=== PATIENT | female | born 1955 | race American Indian/Alaskan Native ===

== ENCOUNTER 2021-07-31 23:09 | Inpatient (IN) | payer BC, MEDICARE ==
[2021-07-31] MEDS ORDERED: SODIUM CHLORIDE 0.9% 1000 ML 1,000 ML IV ONE (23:44)
--- NOTE | 2021-07-31 23:52 | Emergency Department Report ---
HPI - General Chief Complaint: High BP Time Seen by Provider: 07/31/21 23:38 - HPI HPI: Room 22 The patient is a 66-year-old female present with a chief complaint of altered mental status. Patient's last known well time is currently unknown. Per EMS t he patient's son came home at approximately 2000 to find the patient altered. She is normally ambulatory and talks with the patient now just looks around and does not answer questions. Patient was found to be hypertensive and hyperglycemic with a glucose in the 500s by EMS. Patient does not respond when asked if anything is bothering her ED Past Medical Hx - Past Medical History Hx Hypertension: Yes Hx Diabetes: Yes - Surgical History Past Surgical History?: No - Family History Family history: no significant - Social History Smoking Status: Unknown if ever smoked ED Review of Systems ROS: Stated complaint: HIGH BP/ HIGH BLOOD SUGAR Other details as noted in HPI Comment: Unobtainable due to pts medical conditions Physical Exam - Physical Exam Vital Signs: Vital Signs 07/31/21 23:24 Temperature 99.4 F Pulse Rate 109 H Respiratory 18 Rate Blood Pressure 206/109 O2 Sat by Pulse 100 Oximetry Physical Exam: GENERAL: The patient is well-developed well-nourished female lying on stretcher not appearing to be in acute distress. Patient looks around and sometimes makes eye contact but does not respond verbally HEENT: Normocephalic. Atraumatic. Extraocular motions are intact. Patient has moist mucous membranes. NECK: Supple. Trachea midline CHEST/LUNGS: Clear to auscultation. There is no respiratory distress noted. HEART/CARDIOVASCULAR: Regular. There is tachycardia. There is no gallop rub or murmur. ABDOMEN: Abdomen is soft, nontender. Patient has normal bowel sounds. There is no abdominal distention. SKIN: There is no rash. There is no edema. There is no diaphoresis. NEURO: The patient is awake and looks around occasionally making eye contact but does not respond verbally. The patient is not cooperative with neurologic exam. MUSCULOSKELETAL: There is no evidence of acute injury. ED Course Vital Signs 07/31/21 23:24 Temperature 99.4 F Pulse Rate 109 H Respiratory 18 Rate Blood Pressure 206/109 O2 Sat by Pulse 100 Oximetry - Reevaluation(s) Reevaluation #1: 08/01/21 01:34 Patient replies "mmmmmmmMMmmmm" when asked if anything is bothering her but does not respond when asked her name. Patient makes eye contact ED Medical Decision Making - Lab Data Result diagrams: 08/01/21 00:26 08/01/21 00:26 Laboratory Tests 07/31/21 08/01/21 08/01/21 23:46 00:26 00:26 WBC 10.7 RBC 4.54 Hgb 11.6 Hct 34.8 MCV 77 L MCH 25 L MCHC 33 RDW 19.1 H Plt Count 499 H Lymph % (Auto) 12.[address] [place] % (Auto) 3.3 Eos % (Auto) 0.2 Baso % (Auto) 0.7 Lymph # (Auto) 1.3 [place] # (Auto) 0.4 Eos # (Auto) 0.0 Baso # (Auto) 0.1 Seg Neutrophils % 83.7 H Seg Neutrophils # 9.0 H VBG pH Sodium 137 Potassium 4.2 Chloride 97.4 L Carbon Dioxide 23 Anion Gap 21 BUN 19 H Creatinine 1.0 Estimated GFR > 60 BUN/Creatinine Ratio 19 Glucose 579 H* POC Glucose 508 H Calcium 9.2 Total Bilirubin 0.30 AST 9 ALT 7 Alkaline Phosphatase 135 H Total Creatine Kinase 30 CK-MB (CK-2) 1.1 CK-MB (CK-2) Rel Index 3.6 Troponin T < 0.010 Total Protein 7.8 Albumin 3.5 L Albumin/Globulin Ratio 0.8 08/01/21 00:26 WBC RBC Hgb Hct MCV MCH MCHC RDW Plt Count Lymph % (Auto) [place] % (Auto) Eos % (Auto) Baso % (Auto) Lymph # (Auto) [place] # (Auto) Eos # (Auto) Baso # (Auto) Seg Neutrophils % Seg Neutrophils # VBG pH 7.406 Sodium Potassium Chloride Carbon Dioxide Anion Gap BUN Creatinine Estimated GFR BUN/Creatinine Ratio Glucose POC Glucose Calcium Total Bilirubin AST ALT Alkaline Phosphatase Total Creatine Kinase CK-MB (CK-2) CK-MB (CK-2) Rel Index Troponin T Total Protein Albumin Albumin/Globulin Ratio - EKG Data -: EKG Interpreted by Ar EKG shows normal: sinus rhythm Rate: tachycardia (123 bpm) - EKG Data When compared to previous EKG there are: previous EKG unavailable Interpretation: other (No ischemic changes seen) - Radiology Data Radiology results: report reviewed (Chest x-ray, CT head), image reviewed (Chest x-ray, CT head) interpreted by me: Chest x-ray-no definite focal filtrates, no pneumothorax [address] [address] XRay Report Signed Patient: DWAIN AC MR#: [id number] [birth year] : 1955 Acct:[id number] Age/Sex: 66 / F ADM Date: 07/31/21 Loc: ED Attending Dr: Ordering Physician: NARA GEORGE MD Date of Service: 07/31/21 Procedure(s): XR chest 1V ap Accession Number(s): [id number] cc: NARA GEORGE MD Fluoro Time In Minutes: CHEST 1 VIEW INDICATION / CLINICAL INFORMATION: Tachycardia, altered mental status. COMPARISON: Chest x-ray 02/29/2016. FINDINGS: SUPPORT DEVICES: None. HEART / MEDIASTINUM: No significant abnormality. LUNGS / PLEURA: Lungs are clear for degree of inspiration and technique utilized. BONES: No acute osseous abnormality. ADDITIONAL FINDINGS: No significant additional findings. IMPRESSION: 1. No active cardiopulmonary disease. Signer Name: Keren Urbina II, MD Signed: 08/01/2021 12:57 AM Workstation Name: [id number] Transcribed By: OLGA Dictated By: KEREN URBINA II, MD Electronically Authen ticated By: KEREN URBINA II, MD Signed Date/Time: 08/01/2156 DD/ TD/TT: [address] [address] Cat Scan Report Signed Patient: DWAIN AC MR#: [id number] [birth year] : 1955 Acct:[id number] Age/Sex: 66 / F ADM Date: 07/31/21 Loc: ED Attending Dr: Ordering Physician: NARA GEORGE MD Date of Service: 07/31/21 Procedure(s): CT head/brain wo con Accession Number(s): [id number] cc: NARA GEORGE MD CT HEAD WITHOUT CONTRAST INDICATION / CLINICAL INFORMATION: Altered mental status. TECHNIQUE: CT head was performed without administration of intravenous contrast. All CT scans at this location are performed using CT dose reduction for ALARA by means of automated exposure contr ol. COMPARISON: None available. FINDINGS: CEREBRAL HEMISPHERES: There is no evidence of large territorial infarction or significant abnormality of deleon-white matter differentiation. Ventricles within normal limits. No midline shift. Basal cisterns patent. HEMORRHAGE: None. CEREBELLUM / BRAINSTEM: No significant abnormality. ORBITS: No significant abnormality. SOFT TISSUES: No significant abnormality. SKULL: No significant abnormality. PARANASAL SINUSES / MASTOID AIR CELLS: Normal as visualized. ADDITIONAL FINDINGS: None. IMPRESSION: 1. No acute intracranial abnormality. Signer Name: Keren Urbina II, MD Signed: 08/01/2021 1:37 AM Workstation Name: [id number] Transcribed By: OLGA Dictated By: KEREN URBINA II, MD Electronically Authenticated By: KEREN URBINA II, MD Signed Date/Time: 08/01/21136 DD/ 4 TD/TT: - Differential Diagnosis AMS, DKA, hypertensive urgency, hypertensive emergency Critical care attestation.: If time is entered above; I have spent that time in minutes in the direct care of this critically ill patient, excluding procedure time. ED Disposition Clinical Impression: Altered mental status, Hyperglycemia, Hypertensive urgency Disposition: ADMITTED INPATIENT Is pt being admited?: Yes Does the pt Need Aspirin: Yes Condition: Fair Referrals: ASHER COONEY MD [Primary Care Provider] - 3-5 Days Time of Disposition: 02:02 (Care transferred to hospitalist (Dr Whyte))
[2021-08-01 00:47] LABS: Basophils # (Auto) 0.1 K/mm3 (0.0-0.1); Basophils % (Auto) 0.7 % (0.0-1.8); Eosinophils % (Auto) 0.2 % (0.0-4.3); Hematocrit 34.8 % (30.3-42.9); Hemoglobin 11.6 gm/dl (10.1-14.3); Lymphocytes # (Auto) 1.3 K/mm3 (1.2-5.4); Lymphocytes % (Auto) 12.1 % (13.4-35.0); Mean Corpuscular HGB Conc 33 % (30-34); Mean Corpuscular Volume 77 fl (79-97); Monocytes # (Auto) 0.4 K/mm3 (0.0-0.8); Monocytes % (Auto) 3.3 % (0.0-7.3); Platelet Count 499 K/mm3 (140-440); Red Blood Count 4.54 M/mm3 (3.65-5.03); Red Cell Distribution Width 19.1 % (13.2-15.2)
[2021-08-01 00:59] LABS: Creatine Kinase MB 1.1 ng/mL (0.0-4.0)
[2021-08-01 01:00] LABS: Alanine Aminotransferase 7 units/L (7-56); Albumin 3.5 g/dL (3.9-5); BUN/Creatinine Ratio 19; Blood Urea Nitrogen 19 mg/dL (7-17); Calcium 9.2 mg/dL (8.4-10.2); Hemolysis Index 6
--- NOTE | 2021-08-01 01:02 | XRay Report ---
CHEST 1 VIEW INDICATION / CLINICAL INFORMATION: Tachycardia, altered mental status. COMPARISON: Chest x-ray 02/29/2016. FINDINGS: SUPPORT DEVICES: None. HEART / MEDIASTINUM: No significant abnormality. LUNGS / PLEURA: Lungs are clear for degree of inspiration and technique utilized. BONES: No acute osseous abnormality. ADDITIONAL FINDINGS: No significant additional findings. IMPRESSION: 1. No active cardiopulmonary disease. Signer Name: Deshaun Ohara II, MD Signed: 08/01/2021 12:57 AM Workstation Name: [id number]
[2021-08-01] MEDS ORDERED: SODIUM CHLORIDE 0.9% 1000 ML 1,000 ML IV ONE (01:33)
[2021-08-01] MEDS ORDERED: INSULIN REGULAR, HUMAN 100 UNITS/1 ML IV ONE (01:33)
--- NOTE | 2021-08-01 01:42 | Cat Scan Report ---
CT HEAD WITHOUT CONTRAST INDICATION / CLINICAL INFORMATION: Altered mental status. TECHNIQUE: CT head was performed without administration of intravenous contrast. All CT scans at this location are performed using CT dose reduction for ALARA by means of automated exposure control. COMPARISON: None available. FINDINGS: CEREBRAL HEMISPHERES: There is no evidence of large territorial infarction or significant abnormality of deleon-white matter differentiation. Ventricles within normal limits. No midline shift. Basal ciste rns patent. HEMORRHAGE: None. CEREBELLUM / BRAINSTEM: No significant abnormality. ORBITS: No significant abnormality. SOFT TISSUES: No significant abnormality. SKULL: No significant abnormality. PARANASAL SINUSES / MASTOID AIR CELLS: Normal as visualized. ADDITIONAL FINDINGS: None. IMPRESSION: 1. No acute intracranial abnormality. Signer Name: Deshaun Ohara II, MD Signed: 08/01/2021 1:37 AM Workstation Name: [id number]
[2021-08-01] MEDS ORDERED: METOCLOPRAMIDE 10 MG TAB PO PRN (02:42)
[2021-08-01] MEDS ORDERED: MAGNESIUM HYDROXIDE (MOM) ORAL LIQD UDC PO PRN ×2 (02:42)
[2021-08-01] MEDS ORDERED: ACETAMINOPHEN 325 MG TAB PO PRN ×2 (02:42)
[2021-08-01] MEDS ORDERED: MORPHINE 2 MG/1 ML INJ IV PRN ×2 (02:42)
[2021-08-01] MEDS ORDERED: PROMETHAZINE 25 MG RECT SUPP PR PRN (02:42)
[2021-08-01] MEDS ORDERED: MORPHINE 4 MG/1 ML INJ IV PRN ×2 (02:42)
[2021-08-01] MEDS ORDERED: DEXTROSE 50% IN WATER (25GM) 50 ML SYRINGE IV PRN (02:42)
[2021-08-01] MEDS ORDERED: ONDANSETRON 4 MG/2 ML INJ IV PRN ×2 (02:42)
[2021-08-01 02:58] LABS: Bacteria,Urine 1+ /HPF (Negative); Bilirubin,Urine NEG (Negative); Blood,Urine SM (Negative); Color,Urine Yellow (Yellow); Urobilinogen,Urine < 2.0 mg/dL (<2.0)
[2021-08-01] MEDS ORDERED: labetaloL 200 MG in DEXTROSE 5% IN WATER 160 ML IV ONE (02:58)
[2021-08-01 03:00] LABS: Protein,Urine >500 mg/dL (Negative)
--- NOTE | 2021-08-01 03:01 | History and Physical Report ---
History of Present Illness Date of examination: 08/01/21 Date of admission: 06/01/2021 Chief complaint: Altered Mental Status History of present illness: 66-year-old female brought into the emergency room via EMS today for evaluation of altered mental status. Last well-known time is unknown. Son was said to have called EMS at about 8 PM when he found patient to be altered. Patient is normally ambulatory and also able to talk. Patient was found to be hypertensive and having elevated blood glucose in the 500s when evaluated by EMS. Most of the history was gotten from the ER staff. However patient was able to nod her head to questions. She was not able to give a good history. Upon arrival in the emergency room, blood pressure was quite elevated with sys tolic in the 200s and diastolic in the low 100s. She was given a dose of IV labetalol with significant improvement in her blood pressure. Work-up in the emergency room today, labs significant for UTI. Chemistry reveals blood glucose in the 500s. CT scan of the head was unremarkable. Past History Past Medical History: diabetes, hypertension Past Surgical History: No surgical history Social history: no significant social history Family history: no significant family history Medications and Allergies Allergies Allergy/AdvReac Type Severity Reaction Status Date / Time No Known Allergies Allergy Unverified 08/26/13 11:40 Active Meds: Active Medications Acetaminophen (Acetaminophen 325 Mg Tab) 650 mg PO Q4H PRN PRN Reason: Pain, Mild (1-3) Acetaminophen (Acetaminophen 325 Mg Tab) 650 mg PO Q6H PRN PRN Reason: Pain MILD(1-3)/Fever >100.5/COOK Aspirin (Aspirin 325 Mg Tab) 325 mg PO QDAY EDIS Bisacodyl (Bisacodyl 10 Mg Rect Supp) 10 mg SC QDAY PRN PRN Reason: Constipation Dextrose (Dextrose 50% In Water (25gm) 50 Ml Syringe) 50 ml IV Q30MIN PRN; Protocol PRN Reason: Hypoglycemia Dextrose (Dextrose 50% In Water (25gm) 50 Ml Syringe) 50 ml IV Q30MIN PRN; Protocol PRN Reason: Hypoglycemia Labetalol HCl 200 mg/ Dextrose 200 mls @ 120 mls/hr IV ONCE ONE; Protocol Stop: 08/01/21 04:37 Sodium Chloride (Nacl 0.9% 1000 Ml) 1,000 mls @ 75 mls/hr IV DIRECT EDIS Insulin Human Lispro (Insulin Lispro 100 Unit/Ml) 0 unit SUB-Q ACHS EDIS; Protocol Magnesium Hydroxide (Magnesium Hydroxide (Mom) Oral Liqd Udc) 30 ml PO Q4H PRN PRN Reason: Constipation Magnesium Hydroxide (Magnesium Hydroxide (Mom) Oral Liqd Udc) 30 ml PO Q4H PRN PRN Reason: Constipation Metoclopramide HCl (Metoclopramide 10 Mg Tab) 10 mg PO Q6H PRN PRN Reason: Nausea And Vomiting Morphine Sulfate (Morphine 2 Mg/1 Ml Inj) 2 mg IV Q4H PRN PRN Reason: Pain, Moderate (4-6) Morphine Sulfate (Morphine 4 Mg/1 Ml Inj) 4 mg IV Q4H PRN PRN Reason: Pain , Severe (7-10) Morphine Sulfate (Morphine 2 Mg/1 Ml Inj) 2 mg IV Q4H PRN PRN Reason: Pain, Moderate (4-6) Morphine Sulfate (Morphine 4 Mg/1 Ml Inj) 4 mg IV Q4H PRN PRN Reason: Pain , Severe (7-10) Ondansetron HCl (Ondansetron 4 Mg/2 Ml Inj) 4 mg IV Q8H PRN PRN Reason: Nausea And Vomiting Ondansetron HCl (Ondansetron 4 Mg/2 Ml Inj) 4 mg IV Q8H PRN PRN Reason: Nausea And Vomiting Promethazine HCl (Promethazine 25 Mg Rect Supp) 25 mg SC Q6H PRN PRN Reason: Nausea And Vomiting Sodium Chloride (Sodium Chloride 0.9% 10 Ml Flush Syringe) 10 ml IV BID EDIS Sodium Chloride (Sodium Chloride 0.9% 10 Ml Flush Syringe) 10 ml IV PRN PRN PRN Reason: LINE FLUSH Sodium Chloride (Sodium Chloride 0.9% 10 Ml Flush Syringe) 10 ml INJ PRN PRN PRN Reason: LINE FLUSH Review of Systems ROS unobtainable: due to mental status Exam - Constitutional Vitals: Temp Pulse Resp BP Pulse Ox 98.8 F 120 H 14 198/117 98 08/01/21 00:43 08/01/21 01:46 08/01/21 01:46 08/01/21 02:05 08/01/21 01:46 General appearance: Present: no acute distress, well-nourished - EENT Eyes: Present: PERRL, EOM intact. Absent: scleral icterus ENT: hearing intact, clear oral mucosa, dentition normal - Neck Neck: Present: supple, normal ROM - Respiratory Respiratory effort: normal Respiratory: bilateral: CTA - Cardiovascular Rhythm: regular Heart Sounds: Present: S1 & S2. Absent: gallop, systolic murmur, diastolic murmur, rub, click - Abdominal General gastrointestinal: Present: soft, non-tender, non-distended, normal bowel sounds. Absent: mass - Integumentary Integumentary: Present: clear, warm, dry, normal turgor. Absent: rash - Musculoskeletal Musculoskeletal: strength equal bilaterally - Psychiatric Psychiatric: appropriate mood/affect, cooperative - Neurologic Neurologic: no focal deficits, moves all extremities, other (Mild facial asymmetry) HEART Score - HEART Score Troponin: Troponin T < 0.010 ng/mL (0.00-0.029) 08/01/21 00:26 Results - Labs CBC & Chem 7: 08/01/21 00:26 08/01/21 00:26 Labs: Abnormal lab results 07/31/21 08/01/21 08/01/21 Range/Units 23:46 00:26 00:26 MCV 77 L (79-97) fl MCH 25 L (28-32) pg RDW 19.1 H (13.2-15.2) % Plt Count 499 H (140-440) K/mm3 Lymph % (Auto) 12.1 L (13.4-35.0) % Seg Neutrophils % 83.7 H (40.0-70.0) % Seg Neutrophils # 9.0 H (1.8-7.7) K/mm3 Chloride 97.4 L (98-107) mmol/L BUN 19 H (7-17) mg/dL Glucose 579 H* (65-100) mg/dL POC Glucose 508 H (70-105) mg/dL Alkaline Phosphatase 135 H (35-129) units/L Albumin 3.5 L (3.9-5) g/dL Assessment and Plan Assessment: Acute encephalopathyetiology unclear. Possibly secondary to underlying UTI versus CVA. Hyperglycemia Hypertensive urgency UTI Plan: Admits to the IMCU Patient will be ruled out for possible CVA. Scheduled for carotid Doppler, echocardiogram and MRI of the brain. Patient started on daily aspirin. Patient commenced on empiric IV antibiotics for UTI Consult will be placed to neurology for evaluation. Patient will be placed on antihypertensive medication and monitor the vital signs closely. DVT prophylaxis: Subcutaneous heparin CODE STATUS: Full code
[2021-08-01] MEDS: cefTRIAXone/NS 1 GM/50 ML 1 GM/50 ML BAG IV SCH (04:03)
[2021-08-01] MEDS: SODIUM CHLORIDE 0.9% 1000 ML 1,000 ML IV SCH ×2 (04:50→11:56)
[2021-08-01] MEDS: INSULIN LISPRO 100 UNIT/ML SUB-Q SCH ×4 (09:10→21:53)
[2021-08-01 09:49] LABS: BUN/Creatinine Ratio 19; Blood Urea Nitrogen 19 mg/dL (7-17); Calcium 8.4 mg/dL (8.4-10.2); Hemolysis Index 1
[2021-08-01 10:24] LABS: ABG Base Excess 1.8 mmol/L (-2.0-3.0); ABG HCO3 25.9 mmol/L (20.0-26.0); ABG PCO2 39.3 mm Hg; ABG PH 7.437 pH Units (7.350-7.450); ABG PO2 83.9 mm Hg (80.0-90.0)
[2021-08-01 10:33] LABS: ABG Methemoglobin 0.6 % (0.0-1.5); ABG Oxygen Saturation 97.1 % (95.0-99.0)
--- NOTE | 2021-08-01 11:27 | Event Note ---
Date: 08/01/21 Patient seen and examined admitted with altered mental status and elevated blood sugar. No evidence of DKA at this time. Blood sugars gradually improving. Awaiting for home medication history so that home meds can be reconciled. She did pass swallow evaluation at bedside diet will be reduced will be started on potassium corrected. Continue current antibiotics for treatment of acute cystitis which could be the inciting factor for altered mental status in the setting of hyperglycemic state. Aspiration precautions DVT and GI prophylaxis.
[2021-08-01] MEDS: ASPIRIN 325 MG TAB PO SCH (11:55)
[2021-08-01] MEDS ORDERED: POTASSIUM CHLORIDE ER 20 MEQ TAB PO SCH (12:00)
[2021-08-01] MEDS: HEPARIN 5,000 UNIT/1 ML VIAL SUB-Q SCH ×2 (13:38→21:55)
[2021-08-02 05:00] LABS: Basophils # (Auto) 0.1 K/mm3 (0.0-0.1); Eosinophils # (Auto) 0.2 K/mm3 (0.0-0.4); Eosinophils % (Auto) 2.3 % (0.0-4.3); Hematocrit 28.4 % (30.3-42.9); Hemoglobin 9.1 gm/dl (10.1-14.3); Lymphocytes # (Auto) 2.8 K/mm3 (1.2-5.4); Lymphocytes % (Auto) 32.9 % (13.4-35.0); Mean Corpuscular HGB Conc 32 % (30-34); Mean Corpuscular Volume 77 fl (79-97); Monocytes # (Auto) 0.6 K/mm3 (0.0-0.8); Monocytes % (Auto) 6.5 % (0.0-7.3); Platelet Count 389 K/mm3 (140-440); Red Cell Distribution Width 19.7 % (13.2-15.2)
[2021-08-02] MEDS ORDERED: hydrALAZINE 20 MG/1 ML INJ IV PRN (05:05)
[2021-08-02 05:22] LABS: BUN/Creatinine Ratio 25; Blood Urea Nitrogen 20 mg/dL (7-17); Calcium 8.1 mg/dL (8.4-10.2); Hemolysis Index 0
[2021-08-02] MEDS: hydrALAZINE 20 MG/1 ML INJ IV PRN (05:22)
[2021-08-02] MEDS: HEPARIN 5,000 UNIT/1 ML VIAL SUB-Q SCH ×4 (05:23→21:52)
[2021-08-02] MEDS: SODIUM CHLORIDE 0.9% 1000 ML 1,000 ML IV SCH (05:30)
[2021-08-02] MEDS: INSULIN LISPRO 100 UNIT/ML SUB-Q SCH ×3 (08:30→17:12)
[2021-08-02] MEDS: cefTRIAXone/NS 1 GM/50 ML 1 GM/50 ML BAG IV SCH (09:01)
[2021-08-02] MEDS: ASPIRIN 325 MG TAB PO SCH (09:01)
[2021-08-02] MEDS: LISINOPRIL 20 MG TAB PO SCH (10:11)
[2021-08-02] MEDS: FAMOTIDINE 20 MG TAB PO SCH (10:11)
[2021-08-02] MEDS: hydroCHLOROthiazide 25 MG TAB PO SCH (10:12)
[2021-08-02] MEDS ORDERED: INSULIN GLARGINE 100 UNITS/ML SUB-Q SCH (10:15)
[2021-08-02] MEDS: INSULIN REGULAR, HUMAN 100 UNITS/1 ML SUB-Q SCH ×2 (12:30→17:12)
--- NOTE | 2021-08-02 13:45 | Vascular Lab Report ---
DUPLEX DOPPLER ULTRASOUND CAROTID, BILATERAL INDICATION / CLINICAL INFORMATION: stroke. COMPARISON: None available. FINDINGS: RIGHT CAROTID: Minimal atherosclerotic plaque. Mild intimal thickening. - PLAQUE ESTIMATE (%): < 50% - CCA velocity: 87 cm/sec. - ICA peak systolic velocity: 93 cm/sec. - ICA/CCA PSV Ratio: Less than 2. Right Vertebral Artery: Antegrade flow. LEFT CAROTID: Minimal atherosclerotic plaque. Mild intimal thickening. - PLAQUE ESTIMATE (%): < 50% - CCA velocity: 114 cm/sec. - ICA peak systolic velocity: 112 cm/sec. - ICA/CCA PSV Ratio: Less than 2. Left Vertebral Artery: Antegrade flow. IMPRESSION: 1. Right Internal Carotid Artery: Less than 50% diameter stenosis. 2. Left Internal Carotid Artery: Less than 50% diameter stenosis. Velocity criteria are extrapolated from diameter data as defined by the Society of Radiologists in [facility] Consensus Conference, Radiology 2003; 229;340-346. NO STENOSIS (NORMAL) - Plaque = none; ICA PSV < 125 cm/sec; ICA/CCA PSV Ratio < 2.0 <50% STENOSIS - Plaque < 50%; ICA PSV < 125 cm/sec; ICA/CCA PSV Ratio < 2.0 50-69% STENOSIS - Plaque > 50%; ICA PSV = 125-230 cm/sec; ICA/CCA PSV Ratio = 2.0-4.0 >70% BUT <100% STENOSIS - Plaque > 50%; ICA PSV > 230 cm/sec; ICA/CCA PSV Ratio > 4.0 NEAR OCCLUSION - Plaque = visible lumen; ICA PSV = high/low/none; ICA/CCA PSV Ratio = variable TOTAL OCCLUSION - Plaque = no lumen; ICA PSV = none; ICA/CCA PSV Ratio = N/A Scribed by: Virginie Cifuentes RDMS, RVT, RMSKS Scribed: 08/02/2021 12:11 PM I have reviewed the images, agree with this report, and edited this report as needed. Signer Name: Michael Gurrola MD Signed: 08/02/2021 1:40 PM Workstation Name: [id number]
--- NOTE | 2021-08-02 14:14 | Consultation ---
History of Present Illness Consult date: 08/02/21 Reason for Consult: AMS, r/o stroke Chief complaint: "I'm doing alright" History of present illness: 66 yo female with htn, dm, who presents after being found by her son around 8 pm yesterday with altered mentation. Upon ED presentation, noted with malignant hypertension and severe hyperglycemia (BGL in the 500s), along with noted acute cystitis. Currently, patient notes that she is fine. Notes a similar episode a few months ago. Also notes a hx of a blister on her right leg due to a medication side effect (unclear which one). Past History Past Medical History: diabetes, hypertension Past Surgical History: No surgical history Social history: no significant social history Family history: no significant family history Medications and Allergies Allergies Allergy/AdvReac Type Severity Reaction Status Date / Time No Known Allergies Allergy Unverified 08/26/13 11:40 Active Meds: Active Medications Acetaminophen (Acetaminophen 325 Mg Tab) 650 mg PO Q6H PRN PRN Reason: Pain MILD(1-3)/Fever >100.5/COOK Aspirin (Aspirin 325 Mg Tab) 325 mg PO QDAY COUNT INCLUDES THE [facility] Last Admin: 08/02/21 09:01 Dose: 325 mg Atorvastatin Calcium (Atorvastatin 40 Mg Tab) 40 mg PO QHS EDIS Bisacodyl (Bisacodyl 10 Mg Rect Supp) 10 mg MD QDAY PRN PRN Reason: Constipation Dextrose (Dextrose 50% In Water (25gm) 50 Ml Syringe) 0 ml IV Q30MIN PRN; Protocol PRN Reason: Hypoglycemia Famotidine (Famotidine 20 Mg Tab) 20 mg PO QDAY COUNT INCLUDES THE [facility] Last Admin: 08/02/21 10:11 Dose: 20 mg Heparin Sodium (Porcine) (Heparin 5,000 Unit/1 Ml Vial) 5,000 unit SUB-Q Q8HR COUNT INCLUDES THE [facility] Last Admin: 08/02/21 13:45 Dose: 5,000 unit Hydralazine HCl (Hydralazine 20 Mg/1 Ml Inj) 10 mg IV Q4H PRN PRN Reason: Hypertension Last Admin: 08/02/21 05:22 Dose: 10 mg Hydrochlorothiazide (Hydrochlorothiazide 25 Mg Tab) 25 mg PO QDAY COUNT INCLUDES THE [facility] Last Admin: 08/02/21 10:12 Dose: 25 mg Ceftriaxone Sodium (Rocephin/Ns 1 Gm/50 Ml) 1 gm in 50 mls @ 100 mls/hr IV Q24HR COUNT INCLUDES THE [facility]; Protocol Last Admin: 08/02/21 09:01 Dose: 100 mls/hr Insulin Glargine (Insulin Glargine 100 Units/Ml) 10 units SUB-Q QAMDIAB COUNT INCLUDES THE [facility] Insulin Glargine (Insulin Glargine 100 Units/Ml) 10 units SUB-Q ONCE@1015 EDIS Stop: 08/02/21 14:15 Last Admin: 08/02/21 10:12 Dose: 10 units Insulin Human Lispro (Insulin Lispro 100 Unit/Ml) 0 unit SUB-Q ACHS COUNT INCLUDES THE [facility]; Protocol Last Admin: 08/02/21 12:30 Dose: 6 unit Insulin Human Regular (Insulin Regular, Human 100 Units/1 Ml) 5 units SUB-Q AC COUNT INCLUDES THE [facility] Last Admin: 08/02/21 12:30 Dose: 5 units Lisinopril (Lisinopril 20 Mg Tab) 20 mg PO QDAY COUNT INCLUDES THE [facility] Last Admin: 08/02/21 10:11 Dose: 20 mg Magnesium Hydroxide (Magnesium Hydroxide (Mom) Oral Liqd Udc) 30 ml PO Q4H PRN PRN Reason: Constipation Metoclopramide HCl (Metoclopramide 10 Mg Tab) 10 mg PO Q6H PRN PRN Reason: Nausea And Vomiting Ondansetron HCl (Ondansetron 4 Mg/2 Ml Inj) 4 mg IV Q8H PRN PRN Reason: Nausea And Vomiting Promethazine HCl (Promethazine 25 Mg Rect Supp) 25 mg MD Q6H PRN PRN Reason: Nausea And Vomiting Sodium Chloride (Sodium Chloride 0.9% 10 Ml Flush Syringe) 10 ml IV BID COUNT INCLUDES THE [facility] Last Admin: 08/02/21 09:01 Dose: 10 ml Sodium Chloride (Sodium Chloride 0.9% 10 Ml Flush Syringe) 10 ml IV PRN PRN PRN Reason: LINE FLUSH Review of Systems All systems: negative (as per hpi;) Physical Examination - Vital Signs Vital Signs: Vital Signs Temp Pulse Resp BP Pulse Ox 99.4 F 109 H 18 206/109 100 07/31/21 23:24 07/31/21 23:24 07/31/21 23:24 07/31/21 23:24 07/31/21 23:24 - Physical Exam Narrative exam: Gen: nad, well-nourished; Head: normocephalic; Eyes: no gaze deviation; no ptosis; ENT: normal vocalization; CVS: warm and well-perfused; Pulm: no respiratory distress; GI: appears non-distended; Ext: no cyanosis appreciated at distal extremities; Skin: +erythema at RLE; Heme: no pathologic ecchymosis appreciated at distal extremities; Neuro: alert, oriented to name, age, month, year, surroundings, no dysarthria, no aphasia, CN 2 - PERRL, visual bobo grossly intact, CN 3, 4, 6 - EOMI, CN 5 - facial sensation symmetric to light touch, CN 7 - facial movement symmetric, CN 8 - hearing grossly intact, CN 9, 10 - uvula midline, CN 11 symmetric shoulder movement, CN 12 - tongue midline; Motor - at least 4/5 at all exts; Sensory - light touch symmetric, Cerebellar - fnf /hts intact, Gait - deferred secondary to fall risk; NIHSS (1a.) Level of Consciousness:0 (1b.) LOC Questions:0 (1c.) LOC Commands:0 (2.) Best Gaze:0 (3.) Visual:0 (4.) Facial Palsy:0 (5a.) Motor Arm, Left:0 (5b.) Motor Arm, Right:0 (6a.) Motor Leg, Left:0 (6b.) Motor Leg, Right:0 (7.) Limb Ataxia:0 (8.) Sensory:0 (9.) Best Language:0 (10.) Dysarthria:0 (11.) Extinction and Inattention:0 NIHSS Total Score: 0 Results - Laboratory Findings CBC and BMP: 08/02/21 04:20 08/02/21 04:20 Abnormal Lab Findings: Abnormal Labs 07/31/21 07/31/21 08/01/21 03:21 23:46 00:26 Hgb Hct MCV 77 L MCH 25 L RDW 19.1 H Plt Count 499 H Lymph % (Auto) 12.1 L Seg Neutrophils % 83.7 H Seg Neutrophils # 9.0 H ABG Hemoglobin Potassium Chloride Carbon Dioxide BUN Glucose POC Glucose 508 H Lactic Acid Calcium Alkaline Phosphatase Albumin Urine WBC (Auto) 56.0 H 08/01/21 08/01/21 08/01/21 00:26 03:19 06:48 Hgb Hct MCV MCH RDW Plt Count Lymph % (Auto) Seg Neutrophils % Seg Neutrophils # ABG Hemoglobin Potassium 3.3 L D Chloride 97.4 L Carbon Dioxide BUN 19 H 19 H Glucose 579 H* 419 H POC Glucose Lactic Acid 5.50 H* Calcium Alkaline Phosphatase 135 H Albumin 3.5 L Urine WBC (Auto) 08/01/21 08/01/21 08/01/21 09:05 10:02 10:05 Hgb Hct MCV MCH RDW Plt Count Lymph % (Auto) Seg Neutrophils % Seg Neutrophils # ABG Hemoglobin 9.8 L Potassium Chloride Carbon Dioxide BUN Glucose POC Glucose 375 H 357 H Lactic Acid Calcium Alkaline Phosphatase Albumin Urine WBC (Auto) 08/01/21 08/02/21 08/02/21 16:40 04:20 04:20 Hgb 9.1 L Hct 28.4 L D MCV 77 L MCH 25 L RDW 19.7 H Plt Count Lymph % (Auto) Seg Neutrophils % Seg Neutrophils # ABG Hemoglobin Potassium Chloride Carbon Dioxide 21 L BUN 20 H Glucose 342 H POC Glucose 276 H Lactic Acid Calcium 8.1 L Alkaline Phosphatase Albumin Urine WBC (Auto) Assessment and Plan 66 yo female with htn, dm, who presents after being found by her son around 8 pm yesterday with altered mentation. Upon ED presentation, noted with malignant hypertension and severe hyperglycemia (BGL in the 500s), along with noted acute cystitis. Currently, patient notes that she is fine now. 1. Hypertensive Emergency - pt notes feeling better last night itself; aim for sbp <160 mmHg. 2. Acute Metabolic Encephalopathy - aggressive treatment of underlying infection and any metabolic derangements. 3. HHNS - aim for euglycemia. 4. DM - aim for euglycemia. 5. Acute cystitis - treatment per primary team. Kayden Mccallum MD Neurology [id number]
--- NOTE | 2021-08-02 17:04 | Progress Note ---
Assessment and Plan Assessment and plan: This is a 66-year-old female with HTN and DM admitted for possible CVA, hypertensive emergency, hyperglycemia and acute cystitis Neuro: r/o CVA, acute metabolic encephalopathy -CT head with no acute events -MRI brain pending -MRA head/neck pending -Reorientation as needed -Maintain sleep-wake cycle -As needed analgesia -Neurology consulted, appreciate recommendations -Aspirin and Lipitor -PT/OT consulted, patient recommendations Cardiac: s/p hypertensive emergency, h/o HTN -SBP 200s/ DBP 100s -> responded to IV medication, no drip needed -Blood pressure monitoring per protocol -Restarted home hydrochlorothiazide and lisinopril -Echocardiogram LVEF 60 to 65%, mild LVH Respiratory: NAD -Supplemental oxygen as needed -Pulmonary hygiene -SPO2 monitoring per protocol GI: Mild protein calorie malnutrition -CC diet -24 hours +2176 mL -PPI -CC diet -BR: Colace : Metabolic acidosis -Renally dose medications -Avoid nephrotoxic medications -Daily weights -Trend BMP ID: Acute cystitis, lactic acidosis (resolved) -Antibiotic therapy with Rocephin -Monitor WBC and temperature curve Endo: h/o DM -Avoid hypoglycemia -SSI -Accu-Cheks q. ACH S -Long-acting insulin, titrate as needed Heme: NAD -Heparin subcu -Trend CBC -Transfuse hemoglobin less than 7 -Monitor for signs of bleeding -SCDs to BLE while in bed The high probability of a clinically significant, sudden or life threatening deterioration of the [neuro] system(s) required my full and direct attention, intervention and personal management. The aggregate critical care time was [60] minutes. This time is in addition to time spent performing reported procedures but includes the following: [x] Data Review and interpretation [x] Patient assessment and monitoring of vital signs [x] Documentation [x] Medication orders and management Disposition Plan: transfer to floor Total Time Spent with Patient (Minutes): 60 History Interval history: This is a 66-year-old female with HTN and DM who presented to the emergency department 08/01 via EMS for evaluation of altered mental status with last known well time unknown. On evaluation by EMS patient was found to be hypertensive with elevated blood glucose levels in the 500s. Upon arrival to the emergency department blood pressure was quite elevated with a systolic blood pressure in the 200s and diastolic in the low 100s and she was given labetalol with improvement. Lab work showed urinary tract infection and hyperglycemia. CT head scan was unremarkable. Patient was admitted to the hospital service with a rule out with possible CVA and UTI with hypertensive urgency, cystitis and hyperglycemia with consults to neurology. Hospital course to date: 08/01: Patient seen and examined admitted with altered mental status and elevated blood sugar. No evidence of DKA at this time. Blood sugars gradually improving. Awaiting for home medication history so that home meds can be reconciled. She did pass swallow evaluation at bedside diet will be reduced will be started on potassium corrected. Continue current antibiotics for treatment of acute cystitis which could be the inciting factor for altered mental status in the setting of hyperglycemic state. Aspiration precautions DVT and GI prophylaxis. 08/02: Pending MRI brain, MRA head/neck, NIHSS 0. Neurology consult completed. Patient to be transferred to the floor. Hospitalist Physical - Constitutional Vitals: Temp Pulse Resp BP Pulse Ox 98.4 F 100 H 17 146/78 99 08/02/21 05:00 08/02/21 15:01 08/02/21 15:01 08/02/21 15:01 08/02/21 15:01 General appearance: Present: no acute distress, well-nourished - EENT Eyes: Present: PERRL, EOM intact ENT: hearing intact, clear oral mucosa, dentition normal - Neck Neck: Present: normal ROM - Respiratory Respiratory effort: normal - Cardiovascular Rhythm: regular Heart Sounds: Present: S1 & S2 - Extremities Extremities: no ischemia, pulses intact, pulses symmetrical, No edema, normal temperature, normal color, Full ROM Peripheral Pulses: within normal limits - Abdominal General gastrointestinal: soft, non-tender, non-distended, normal bowel sounds - Integumentary Integumentary: Present: warm, dry - Psychiatric Psychiatric: appropriate mood/affect, cooperative - Neurologic Neurologic: CNII-XII intact, moves all extremities - Allied Health Allied health notes reviewed: nursing, RT, social work HEART Score - HEART Score Troponin: Troponin T < 0.010 ng/mL (0.00-0.029) 08/01/21 00:26 Results - Labs CBC & Chem 7: 08/02/21 04:20 08/02/21 04:20 Labs: Laboratory Last Values WBC 8.6 K/mm3 (4.5-11.0) 08/02/21 04:20 RBC 3.70 M/mm3 (3.65-5.03) 08/02/21 04:20 Hgb 9.1 gm/dl (10.1-14.3) L 08/02/21 04:20 Hct 28.4 % (30.3-42.9) L D 08/02/21 04:20 MCV 77 fl (79-97) L 08/02/21 04:20 MCH 25 pg (28-32) L 08/02/21 04:20 MCHC 32 % (30-34) 08/02/21 04:20 RDW 19.7 % (13.2-15.2) H 08/02/21 04:20 Plt Count 389 K/mm3 (140-440) 08/02/21 04:20 Lymph % (Auto) 32.9 % (13.4-35.0) 08/02/21 04:20 Rush % (Auto) 6.5 % (0.0-7.3) 08/02/21 04:20 Eos % (Auto) 2.3 % (0.0-4.3) 08/02/21 04:20 Baso % (Auto) 1.0 % (0.0-1.8) 08/02/21 04:20 Lymph # (Auto) 2.8 K/mm3 (1.2-5.4) 08/02/21 04:20 Rush # (Auto) 0.6 K/mm3 (0.0-0.8) 08/02/21 04:20 Eos # (Auto) 0.2 K/mm3 (0.0-0.4) 08/02/21 04:20 Baso # (Auto) 0.1 K/mm3 (0.0-0.1) 08/02/21 04:20 Seg Neutrophils % 57.3 % (40.0-70.0) 08/02/21 04:20 Seg Neutrophils # 4.9 K/mm3 (1.8-7.7) 08/02/21 04:20 ABG pH 7.437 pH Units (7.350-7.450) 08/01/21 10:05 ABG pCO2 39.3 mm Hg 08/01/21 10:05 ABG pO2 83.9 mm Hg (80.0-90.0) 08/01/21 10:05 ABG HCO3 25.9 mmol/L (20.0-26.0) 08/01/21 10:05 ABG O2 Saturation 97.1 % (95.0-99.0) 08/01/21 10:05 ABG O2 Content 20.4 (0.0-44) 08/01/21 10:05 ABG Base Excess 1.8 mmol/L (-2.0-3.0) 08/01/21 10:05 ABG Hemoglobin 9.8 gm/dl (12.0-16.0) L 08/01/21 10:05 ABG Carboxyhemoglobin 1.3 % (0.0-5.0) 08/01/21 10:05 ABG Methemoglobin 0.6 % (0.0-1.5) 08/01/21 10:05 VBG pH 7.406 (7.320-7.420) 08/01/21 00:26 Oxyhemoglobin 95.3 % (95.0-99.0) 08/01/21 10:05 FiO2 21 % 08/01/21 10:05 Sodium 140 mmol/L (137-145) 08/02/21 04:20 Potassium 3.6 mmol/L (3.6-5.0) 08/02/21 04:20 Chloride 105.5 mmol/L (98-107) 08/02/21 04:20 Carbon Dioxide 21 mmol/L (22-30) L 08/02/21 04:20 Anion Gap 17 mmol/L 08/02/21 04:20 BUN 20 mg/dL (7-17) H 08/02/21 04:20 Creatinine 0.8 mg/dL (0.6-1.2) 08/02/21 04:20 Estimated GFR > 60 ml/min 08/02/21 04:20 BUN/Creatinine Ratio 25 % 08/02/21 04:20 Glucose 342 mg/dL (65-100) H 08/02/21 04:20 POC Glucose 276 mg/dL (70-105) H 08/01/21 16:40 Lactic Acid 1.80 mmol/L (0.7-2.0) 08/01/21 06:48 Calcium 8.1 mg/dL (8.4-10.2) L 08/02/21 04:20 Total Bilirubin 0.30 mg/dL (0.1-1.2) 08/01/21 00:26 AST 9 units/L (5-40) 08/01/21 00:26 ALT 7 units/L (7-56) 08/01/21 00:26 Alkaline Phosphatase 135 units/L (35-129) H 08/01/21 00:26 Total Creatine Kinase 30 units/L (30-135) 08/01/21 00:26 CK-MB (CK-2) 1.1 ng/mL (0.0-4.0) 08/01/21 00: CK-MB (CK-2) Rel Index 3.6 (0-4) 08/01/21 00:26 Troponin T < 0.010 ng/mL (0.00-0.029) 08/01/21 00:26 Total Protein 7.8 g/dL (6.3-8.2) 08/01/21 00:26 Albumin 3.5 g/dL (3.9-5) L 08/01/21 00:26 Albumin/Globulin Ratio 0.8 % 08/01/21 00:26 Urine Color Yellow (Yellow) 07/31/21 03:21 Urine Turbidity Cloudy (Clear) 07/31/21 03:21 Urine pH 6.0 (5.0-7.0) 07/31/21 03:21 Ur Specific Edgar 1.016 (1.003-1.030) 07/31/21 03:21 Urine Protein >500 mg/dL (Negative) 07/31/21 03:21 Urine Glucose (UA) >=500 mg/dL (Negative) 07/31/21 03:21 Urine Ketones Tr mg/dL (Negative) 07/31/21 03:21 Urine Blood Sm (Negative) 07/31/21 03:21 Urine Nitrite Neg (Negative) 07/31/21 03:21 Urine Bilirubin Neg (Negative) 07/31/21 03:21 Urine Urobilinogen < 2.0 mg/dL (<2.0) 07/31/21 03:21 Ur Leukocyte Esterase Lg (Negative) 07/31/21 03:21 Urine WBC (Auto) 56.0 /HPF (0.0-6.0) H 07/31/21 03:21 Urine RBC (Auto) 2.0 /HPF (0.0-6.0) 07/31/21 03:21 U Epithel Cells (Auto) 4.0 /HPF (0-13.0) 07/31/21 03:21 Urine Bacteria (Auto) 1+ /HPF (Negative) 07/31/21 03:21 Urine WBC Clumps 2+ /HPF 07/31/21 03:21 Microbiology: Microbiology 07/31/21 Unknown Urine,Clean Catch Urine Culture - Preliminary Gram Negative Pieter 08/01/21 02:44 Peripheral/Venous Blood Culture - Preliminary NO GROWTH AFTER 24 HOURS 08/01/21 02:44 Peripheral/Venous Blood Culture - Preliminary NO GROWTH AFTER 24 HOURS [place]re/IV: Voiding Method Indwelling Catheter Active Medications - Current Medications Current Medications: Generic Name Dose Route Start Last Admin Trade Name Freq PRN Reason Stop Dose Admin Acetaminophen 650 mg 08/01/21 02:42 Acetaminophen 325 Mg Tab PO Q6H PRN Pain MILD(1-3)/Fever >100.5/COOK Aspirin 325 mg 08/01/21 10:00 08/02/21 09:01 Aspirin 325 Mg Tab PO 325 mg QDAY EDIS Administration Atorvastatin Calcium 40 mg 08/02/21 22:00 Atorvastatin 40 Mg Tab PO QHS EDIS Bisacodyl 10 mg 08/01/21 02:42 Bisacodyl 10 Mg Rect Supp MD QDAY PRN Constipation Dextrose 0 ml 08/01/21 02:42 Dextrose 50% In Water (25gm) 50 Ml Syringe IV Q30MIN PRN Hypoglycemia Protocol Docusate Sodium 100 mg 08/02/21 22:00 Docusate Sodium 100 Mg Cap PO BID EDIS Famotidine 20 mg 08/02/21 10:00 08/02/21 10:11 Famotidine 20 Mg Tab PO 20 mg QDAY EDIS Administration Heparin Sodium (Porcine) 5,000 unit 08/01/21 06:00 08/02/21 13:45 Heparin 5,000 Unit/1 Ml Vial SUB-Q 5,000 unit Q8HR EDIS Administration Hydralazine HCl 10 mg 08/02/21 06:00 08/02/21 05:22 Hydralazine 20 Mg/1 Ml Inj IV 10 mg Q4H PRN Administration Hypertension Hydrochlorothiazide 25 mg 08/02/21 10:00 08/02/21 10:12 Hydrochlorothiazide 25 Mg Tab PO 25 mg QDAY EDIS Administration Ceftriaxone Sodium 1 gm in 50 mls @ 100 mls/hr 08/01/21 04:00 08/02/21 09:01 Rocephin/Ns 1 Gm/50 Ml IV 100 mls/hr Q24HR EDIS Administration Protocol Insulin Glargine 10 units 08/03/21 08:00 Insulin Glargine 100 Units/Ml SUB-Q QAMDIAB EDIS Insulin Human Lispro 0 unit 08/01/21 07:30 08/02/21 12:30 Insulin Lispro 100 Unit/Ml SUB-Q 6 unit ACHS EDIS Administration Protocol Insulin Human Regular 5 units 08/02/21 11:30 08/02/21 12:30 Insulin Regular, Human 100 Units/1 Ml SUB-Q 5 units AC EDIS Administration Lisinopril 20 mg 08/02/21 10:00 08/02/21 10:11 Lisinopril 20 Mg Tab PO 20 mg QDAY EDIS Administration Magnesium Hydroxide 30 ml 08/01/21 02:42 Magnesium Hydroxide (Mom) Oral Liqd Udc PO Q4H PRN Constipation Metoclopramide HCl 10 mg 08/01/21 02:42 Metoclopramide 10 Mg Tab PO Q6H PRN Nausea And Vomiting Ondansetron HCl 4 mg 08/01/21 02:42 Ondansetron 4 Mg/2 Ml Inj IV Q8H PRN Nausea And Vomiting Promethazine HCl 25 mg 08/01/21 02:42 Promethazine 25 Mg Rect Supp MD Q6H PRN Nausea And Vomiting Sodium Chloride 10 ml 08/01/21 10:00 08/02/21 09:01 Sodium Chloride 0.9% 10 Ml Flush Syringe IV 10 ml BID EDIS Administration Sodium Chloride 10 ml 08/01/21 02:42 Sodium Chloride 0.9% 10 Ml Flush Syringe IV PRN PRN LINE FLUSH Nutrition/Malnutrition Assess - Dietary Evaluation Nutrition/Malnutrition Findings: Nutrition Notes Start: 08/01/21 18:28 Freq: Status: Active Protocol: Document 08/01/21 18:28 RAMONA (Rec: 08/01/21 18:36 RAMONA [email or web address]) Nutrition Notes Need for Assessment generated from: MD Order,Education Initial or Follow up Brief Note Current Diagnosis Diabetes,Hypertension Other Pertinent Diagnosis Encephalopathy, UTI, AMS. Current Diet Cardiac/Consistent Carbohydrates Diet (since L ). Height 5 ft 5 in Weight 79.379 kg [place] Body Weight (kg) 56.81 BMI 29.1 Intake Prior to Admission Good Weight change and time frame Pt denies having loss body weight [employer]. Weight Status Overweight Subjective/Other Information RD consult for nutrition education assessment. No reports available on Pt's PO intake of meals at the time , will assess at F/U. Pt is on Room Air, O2 satuyration @ 100%, according to Physical Assessment History notes. Bedside Swallow Evaluation passed, according to Event note. Pt still in critical condition , not a candidate for Nutrition Education at the time, will assess feasibility on F/U. Percent of energy/protein needs met: Prescribed Cardiac/Consistent Carbohydrates Diet provides for energy/protein needs (1, 977 Kcal/86 g) during LOS. Nutrition Intervention Follow-Up By: 08/08/21 Additional Comments Nutrition education will be provided on F/U, if feasible. Continue monitoring food tolerance, %PO intake of meals , and BM.
[2021-08-02] MEDS: DOCUSATE SODIUM 100 MG CAP PO SCH (21:52)
[2021-08-03] MEDS: hydrALAZINE 20 MG/1 ML INJ IV PRN (00:13)
[2021-08-03] MEDS: INSULIN LISPRO 100 UNIT/ML SUB-Q SCH ×5 (01:43→21:54)
[2021-08-03 05:11] LABS: Hematocrit 29.5 % (30.3-42.9); Hemoglobin 9.5 gm/dl (10.1-14.3); Mean Corpuscular HGB Conc 32 % (30-34); Mean Corpuscular Volume 76 fl (79-97); Platelet Count 414 K/mm3 (140-440); Red Blood Count 3.87 M/mm3 (3.65-5.03); Red Cell Distribution Width 19.6 % (13.2-15.2)
[2021-08-03 05:29] LABS: Blood Urea Nitrogen 16 mg/dL (7-17); Calcium 8.5 mg/dL (8.4-10.2); Hemolysis Index 12
[2021-08-03 05:31] LABS: BUN/Creatinine Ratio 23
[2021-08-03] MEDS: HEPARIN 5,000 UNIT/1 ML VIAL SUB-Q SCH ×3 (06:22→21:46)
[2021-08-03] MEDS ORDERED: INSULIN GLARGINE 100 UNITS/ML SUB-Q SCH (08:00)
--- NOTE | 2021-08-03 08:56 | Progress Note ---
Assessment and Plan Assessment and plan: This is a 66-year-old female with HTN and DM admitted for possible CVA, hypertensive emergency, hyperglycemia and acute cystitis Acute metabolic encephalopathy r/o CVA, -CT head with no acute events Evaluated by neurology Extensive neuro work-up is in progress MRI brain, MRA head and neck Carotid Doppler pending Echocardiogram LVEF 60 to 65%, mild LVH Follow PT OT evaluation recommendations Rehab discharge planning Continue aspirin and statin hypertensive emergency, h/o HTN -SBP 200s/ DBP 100s -> responded to IV medication, no drip needed -Blood pressure monitoring per protocol -Restarted home hydrochlorothiazide and lisinopril -Echocardiogram LVEF 60 to 65%, mild LVH Mild protein calorie malnutrition -CC diet -24 hours +2176 mL -PPI -CC diet -BR: Colace Metabolic acidosis -Renally dose medications -Avoid nephrotoxic medications -Daily weights -Trend BMP ID: Acute cystitis, lactic acidosis (resolved) -Antibiotic therapy with Rocephin -Monitor WBC and temperature curve History of type II DM Accu-Cheks, sliding scale coverage, ADA diet Long-acting insulin, check A1c Diabetic education, diabetic diet as needed --DVT prophylaxis Subcu heparin We will closely monitor the patient and adjust the management as needed Plan of care reviewed with the patient and her nurse Consultants and recommendations noted and appreciated Follow clinically History Interval history: I have seen and examined the patient at the bedside Patient's chart and medications reviewed Patient was transferred from ICU Feels slightly better Vital signs noted Hospitalist Physical - Constitutional Vitals: Temp Pulse Resp BP Pulse Ox 98.6 F 104 H 18 169/80 96 08/03/21 08:19 08/03/21 08:19 08/03/21 08:19 08/03/21 08:19 08/03/21 08:19 General appearance: Present: no acute distress, well-nourished - EENT Eyes: Present: PERRL, EOM intact - Neck Neck: Present: supple, normal ROM - Respiratory Respiratory effort: normal Respiratory: bilateral: diminished, negative: rales, rhonchi, wheezing - Cardiovascular Rhythm: regular Heart Sounds: Present: S1 & S2 - Extremities Extremities: no ischemia, No edema - Abdominal General gastrointestinal: soft, non-tender, non-distended, normal bowel sounds - Integumentary Integumentary: Present: clear, warm - Psychiatric Psychiatric: appropriate mood/affect, cooperative - Neurologic Neurologic: CNII-XII intact, moves all extremities HEART Score - HEART Score Troponin: Troponin T < 0.010 ng/mL (0.00-0.029) 08/01/21 00:26 Results - Labs CBC & Chem 7: 08/03/21 04:35 08/03/21 04:35 Labs: Laboratory Last Values WBC 8.6 K/mm3 (4.5-11.0) 08/03/21 04:35 RBC 3.87 M/mm3 (3.65-5.03) 08/03/21 04:35 Hgb 9.5 gm/dl (10.1-14.3) L 08/03/21 04:35 Hct 29.5 % (30.3-42.9) L 08/03/21 04:35 MCV 76 fl (79-97) L 08/03/21 04:35 MCH 25 pg (28-32) L 08/03/21 04:35 MCHC 32 % (30-34) 08/03/21 04:35 RDW 19.6 % (13.2-15.2) H 08/03/21 04:35 Plt Count 414 K/mm3 (140-440) 08/03/21 04:35 Lymph % (Auto) 32.9 % (13.4-35.0) 08/02/21 04:20 [place] % (Auto) 6.5 % (0.0-7.3) 08/02/21 04:20 Eos % (Auto) 2.3 % (0.0-4.3) 08/02/21 04:20 Baso % (Auto) 1.0 % (0.0-1.8) 08/02/21 04:20 Lymph # (Auto) 2.8 K/mm3 (1.2-5.4) 08/02/21 04:20 [place] # (Auto) 0.6 K/mm3 (0.0-0.8) 08/02/21 04:20 Eos # (Auto) 0.2 K/mm3 (0.0-0.4) 08/02/21 04:20 Baso # (Auto) 0.1 K/mm3 (0.0-0.1) 08/02/21 04:20 Seg Neutrophils % 57.3 % (40.0-70.0) 08/02/21 04:20 Seg Neutrophils # 4.9 K/mm3 (1.8-7.7) 08/02/21 04:20 ABG pH 7.437 pH Units (7.350-7.450) 08/01/21 10:05 ABG pCO2 39.3 mm Hg 08/01/21 10:05 ABG pO2 83.9 mm Hg (80.0-90.0) 08/01/21 10:05 ABG HCO3 25.9 mmol/L (20.0-26.0) 08/01/21 10:05 ABG O2 Saturation 97.1 % (95.0-99.0) 08/01/21 10:05 ABG O2 Content 20.4 (0.0-44) 08/01/21 10:05 ABG Base Excess 1.8 mmol/L (-2.0-3.0) 08/01/21 10:05 ABG Hemoglobin 9.8 gm/dl (12.0-16.0) L 08/01/21 10:05 ABG Carboxyhemoglobin 1.3 % (0.0-5.0) 08/01/21 10:05 ABG Methemoglobin 0.6 % (0.0-1.5) 08/01/21 10:05 VBG pH 7.406 (7.320-7.420) 08/01/21 00:26 Oxyhemoglobin 95.3 % (95.0-99.0) 08/01/21 10:05 FiO2 21 % 08/01/21 10:05 Sodium 138 mmol/L (137-145) 08/03/21 04:35 Potassium 3.7 mmol/L (3.6-5.0) 08/03/21 04:35 Chloride 104.6 mmol/L (98-107) 08/03/21 04:35 Carbon Dioxide 23 mmol/L (22-30) 08/03/21 04:35 Anion Gap 14 mmol/L 08/03/21 04:35 BUN 16 mg/dL (7-17) 08/03/21 04:35 Creatinine 0.7 mg/dL (0.6-1.2) 08/03/21 04:35 Estimated GFR > 60 ml/min 08/03/21 04:35 BUN/Creatinine Ratio 23 % 08/03/21 04:35 Glucose 192 mg/dL (65-100) H 08/03/21 04:35 POC Glucose 224 mg/dL (70-105) H 08/03/21 08:17 Lactic Acid 1.80 mmol/L (0.7-2.0) 08/01/21 06:48 Calcium 8.5 mg/dL (8.4-10.2) 08/03/21 04:35 Total Bilirubin 0.30 mg/dL (0.1-1.2) 08/01/21 00:26 AST 9 units/L (5-40) 08/01/21 00:26 ALT 7 units/L (7-56) 08/01/21 00:26 Alkaline Phosphatase 135 units/L (35-129) H 08/01/21 00:26 Total Creatine Kinase 30 units/L (30-135) 08/01/21 00:26 CK-MB (CK-2) 1.1 ng/mL (0.0-4.0) 08/01/21 00:26 CK-MB (CK-2) Rel Index 3.6 (0-4) 08/01/21 00:26 Troponin T < 0.010 ng/mL (0.00-0.029) 08/01/21 00:26 Total Protein 7.8 g/dL (6.3-8.2) 08/01/21 00:26 Albumin 3.5 g/dL (3.9-5) L 08/01/21 00:26 Albumin/Globulin Ratio 0.8 % 08/01/21 00:26 Urine Color Yellow (Yellow) 07/31/21 03:21 Urine Turbidity Cloudy (Clear) 07/31/21 03:21 Urine pH 6.0 (5.0-7.0) 07/31/21 03:21 Ur Specific [place] 1.016 (1.003-1.030) 07/31/21 03:21 Urine Protein >500 mg/dL (Negative) 07/31/21 03:21 Urine Glucose (UA) >=500 mg/dL (Negative) 07/31/21 03:21 Urine Ketones Tr mg/dL (Negative) 07/31/21 03:21 Urine Blood Sm (Negative) 07/31/21 03:21 Urine Nitrite Neg (Negative) 07/31/21 03:21 Urine Bilirubin Neg (Negative) 07/31/21 03:21 Urine Urobilinogen < 2.0 mg/dL (<2.0) 07/31/21 03:21 Ur Leukocyte Esterase Lg (Negative) 07/31/21 03:21 Urine WBC (Auto) 56.0 /HPF (0.0-6.0) H 07/31/21 03:21 Urine RBC (Auto) 2.0 /HPF (0.0-6.0) 07/31/21 03:21 U Epithel Cells (Auto) 4.0 /HPF (0-13.0) 07/31/21 03:21 Urine Bacteria (Auto) 1+ /HPF (Negative) 07/31/21 03:21 Urine WBC Clumps 2+ /HPF 07/31/21 03:21 Microbiology: Microbiology 08/01/21 02:44 Peripheral/Venous Blood Culture - Preliminary NO GROWTH AFTER 48 HOURS 08/01/21 02:44 Peripheral/Venous Blood Culture - Preliminary NO GROWTH AFTER 48 HOURS 07/31/21 Unknown Urine,Clean Catch Urine Culture - Preliminary Gram Negative Pieter De La Torre/IV: Voiding Method Indwelling Catheter Active Medications - Current Medications Current Medications: Generic Name Dose Route Start Last Admin Trade Name Freq PRN Reason Stop Dose Admin Acetaminophen 650 mg 08/01/21 02:42 Acetaminophen 325 Mg Tab PO Q6H PRN Pain MILD(1-3)/Fever >100.5/COOK Aspirin 325 mg 08/01/21 10:00 08/02/21 09:01 Aspirin 325 Mg Tab PO 325 mg QDAY EDIS Administration Atorvastatin Calcium 40 mg 08/02/21 22:00 08/02/21 21:52 Atorvastatin 40 Mg Tab PO 40 mg QHS EDIS Administration Bisacodyl 10 mg 08/01/21 02:42 Bisacodyl 10 Mg Rect Supp ND QDAY PRN Constipation Dextrose 0 ml 08/01/21 02:42 Dextrose 50% In Water (25gm) 50 Ml Syringe IV Q30MIN PRN Hypoglycemia Protocol Docusate Sodium 100 mg 08/02/21 22:00 08/02/21 21:52 Docusate Sodium 100 Mg Cap PO 100 mg BID EDIS Administration Famotidine 20 mg 08/02/21 10:00 08/02/21 10:11 Famotidine 20 Mg Tab PO 20 mg QDAY EDIS Administration Heparin Sodium (Porcine) 5,000 unit 08/01/21 06:00 08/03/21 06:22 Heparin 5,000 Unit/1 Ml Vial SUB-Q 5,000 unit Q8HR EDIS Administration Hydralazine HCl 10 mg 08/02/21 06:00 08/03/21 00:13 Hydralazine 20 Mg/1 Ml Inj IV 10 mg Q4H PRN Administration Hypertension Hydrochlorothiazide 25 mg 08/02/21 10:00 08/02/21 10:12 Hydrochlorothiazide 25 Mg Tab PO 25 mg QDAY EDIS Administration Ceftriaxone Sodium 1 gm in 50 mls @ 100 mls/hr 08/01/21 04:00 08/02/21 09:01 Rocephin/Ns 1 Gm/50 Ml IV 100 mls/hr Q24HR [facility] Administration Protocol Insulin Glargine 15 units 08/03/21 08:00 Insulin Glargine 100 Units/Ml SUB-Q QAMDIAB EDIS Insulin Human Lispro 0 unit 08/01/21 07:30 08/03/21 01:43 Insulin Lispro 100 Unit/Ml SUB-Q 3 unit ACHS [facility] Administration Protocol Insulin Human Regular 5 units 08/02/21 11:30 08/02/21 17:12 Insulin Regular, Human 100 Units/1 Ml SUB-Q 5 units AC [facility] Administration Lisinopril 20 mg 08/02/21 10:00 08/02/21 10:11 Lisinopril 20 Mg Tab PO 20 mg QDAY EDIS Administration Magnesium Hydroxide 30 ml 08/01/21 02:42 Magnesium Hydroxide (Mom) Oral Liqd Udc PO Q4H PRN Constipation Metoclopramide HCl 10 mg 08/01/21 02:42 Metoclopramide 10 Mg Tab PO Q6H PRN Nausea And Vomiting Ondansetron HCl 4 mg 08/01/21 02:42 Ondansetron 4 Mg/2 Ml Inj IV Q8H PRN Nausea And Vomiting Promethazine HCl 25 mg 08/01/21 02:42 Promethazine 25 Mg Rect Supp ND Q6H PRN Nausea And Vomiting Sodium Chloride 10 ml 08/01/21 10:00 08/02/21 22:20 Sodium Chloride 0.9% 10 Ml Flush Syringe IV 10 ml BID EDIS Administration Sodium Chloride 10 ml 08/01/21 02:42 Sodium Chloride 0.9% 10 Ml Flush Syringe IV PRN PRN LINE FLUSH Nutrition/Malnutrition Assess - Dietary Evaluation Nutrition/Malnutrition Findings: Nutrition Notes Start: 08/01/21 18:28 Freq: Status: Active Protocol: Document 08/01/21 18:28 RAMONA (Rec: 08/01/21 18:36 RAMONA [email or web address]) Nutrition Notes Need for Assessment generated from: MD Order,Education Initial or Follow up Brief Note Current Diagnosis Diabetes,Hypertension Other Pertinent Diagnosis Encephalopathy, UTI, AMS. Current Diet Cardiac/Consistent Carbohydrates Diet (since L ). Height 5 ft 5 in Weight 79.379 kg [place] Body Weight (kg) 56.81 BMI 29.1 Intake Prior to Admission Good Weight change and time frame Pt denies having loss body weight [employer]. Weight Status Overweight Subjective/Other Information RD consult for nutrition education assessment. No reports available on Pt's PO intake of meals at the time , will assess at F/U. Pt is on Room Air, O2 satuyration @ 100%, according to Physical Assessment History notes. Bedside Swallow Evaluation passed, according to Event note. Pt still in critical condition , not a candidate for Nutrition Education at the time, will assess feasibility on F/U. Percent of energy/protein needs met: Prescribed Cardiac/Consistent Carbohydrates Diet provides for energy/protein needs (1, 977 Kcal/86 g) during LOS. Nutrition Intervention Follow-Up By: 08/08/21 Additional Comments Nutrition education will be provided on F/U, if feasible. Continue monitoring food tolerance, %PO intake of meals , and BM.
[2021-08-03] MEDS: cefTRIAXone/NS 1 GM/50 ML 1 GM/50 ML BAG IV SCH (09:49)
[2021-08-03] MEDS: DOCUSATE SODIUM 100 MG CAP PO SCH ×2 (09:50→21:46)
[2021-08-03] MEDS: INSULIN GLARGINE 100 UNITS/ML SUB-Q SCH (09:50)
[2021-08-03] MEDS: LISINOPRIL 20 MG TAB PO SCH (09:50)
[2021-08-03] MEDS: INSULIN REGULAR, HUMAN 100 UNITS/1 ML SUB-Q SCH ×3 (09:50→17:37)
[2021-08-03] MEDS: ASPIRIN 325 MG TAB PO SCH (09:50)
[2021-08-03] MEDS: FAMOTIDINE 20 MG TAB PO SCH (09:51)
[2021-08-03] MEDS: hydroCHLOROthiazide 25 MG TAB PO SCH (09:59)
[2021-08-04] MEDS: HEPARIN 5,000 UNIT/1 ML VIAL SUB-Q SCH ×3 (06:25→22:00)
[2021-08-04] MEDS: hydrALAZINE 20 MG/1 ML INJ IV PRN (06:25)
[2021-08-04] MEDS: INSULIN LISPRO 100 UNIT/ML SUB-Q SCH ×4 (12:45→22:10)
[2021-08-04] MEDS: INSULIN REGULAR, HUMAN 100 UNITS/1 ML SUB-Q SCH ×3 (12:45→17:10)
[2021-08-04] MEDS: LISINOPRIL 20 MG TAB PO SCH (13:36)
[2021-08-04] MEDS: DOCUSATE SODIUM 100 MG CAP PO SCH ×2 (13:36→22:10)
[2021-08-04] MEDS: FAMOTIDINE 20 MG TAB PO SCH (13:36)
[2021-08-04] MEDS: ASPIRIN 325 MG TAB PO SCH (13:36)
[2021-08-04] MEDS: hydroCHLOROthiazide 25 MG TAB PO SCH (13:36)
[2021-08-04] MEDS: INSULIN GLARGINE 100 UNITS/ML SUB-Q SCH (13:36)
[2021-08-04] MEDS: cefTRIAXone/NS 1 GM/50 ML 1 GM/50 ML BAG IV SCH (13:36)
--- NOTE | 2021-08-04 19:44 | Progress Note ---
Assessment and Plan Assessment and plan: This is a 66-year-old female with HTN and DM admitted for possible CVA, hypertensive emergency, hyperglycemia and acute cystitis Acute metabolic encephalopathy r/o CVA, -CT head with no acute events Evaluated by neurology Extensive neuro work-up is in progress MRI brain, MRA head and neck Carotid Doppler pending Echocardiogram LVEF 60 to 65%, mild LVH Follow PT OT evaluation recommendations Rehab discharge planning Continue aspirin and statin hypertensive emergency, h/o HTN -SBP 200s/ DBP 100s -> responded to IV medication, no drip needed -Blood pressure monitoring per protocol -Restarted home hydrochlorothiazide and lisinopril -Echocardiogram LVEF 60 to 65%, mild LVH Mild protein calorie malnutrition -CC diet -24 hours +2176 mL -PPI -CC diet -BR: Colace Metabolic acidosis -Renally dose medications -Avoid nephrotoxic medications -Daily weights -Trend BMP Sepsis secondary to urinary tract infection; Gram-negative sepsis; Criteria;, and encephalopathy [AMS ]tachycardia, lactic acidosis, positive urine cultures E. coli E. coli sensitive to Rocephin, continue Rocephin IV fluids and supportive care ID consult if needed History of type II DM Accu-Cheks, sliding scale coverage, ADA diet Long-acting insulin, check A1c Diabetic education, diabetic diet as needed --DVT prophylaxis Subcu heparin We will closely monitor the patient and adjust the management as needed Plan of care reviewed with the patient and her nurse Consultants and recommendations noted and appreciated Follow clinically, discharge when stable Brief history and daily hospital course: 66-year-old female patient with HTN and DM who presented to the emergency department 08/01 via EMS for evaluation of altered mental status with last known well time unknown. On evaluation by EMS patient was found to be hypertensive with elevated blood glucose levels in the 500s. Upon arrival to the emergency department blood pressure was quite elevated with a systolic blood pressure in the 200s and diastolic in the low 100s and she was given labetalol with improvement. Lab work showed urinary tract infection and hyperglycemia. CT head scan was unremarkable. Patient was admitted to the hospital service with a rule out with possible CVA and UTI with hypertensive urgency, cystitis and hyperglycemia with consults to neurology. Hospital course to date: 08/01: Patient seen and examined admitted with altered mental status and elevated blood sugar. No evidence of DKA at this time. Blood sugars gradually improving. Awaiting for home medication history so that home meds can be reconciled. She did pass swallow evaluation at bedside diet will be reduced will be started on potassium corrected. Continue current antibiotics for treatment of acute cystitis which could be the inciting factor for altered mental status in the setting of hyperglycemic state. Aspiration precautions DVT and GI prophylaxis. 08/02: Pending MRI brain, MRA head/neck, NIHSS 0. Neurology consult completed. Patient to be transferred to the floor. 08/03; neuro work-up is in progress, unable to reach family for consent for MRI studies, try to contact again UTI, on empiric Rocephin, follow cultures 08/04; urine cultures positive for gram-negative rods E. coli, sensitive to Rocephin, continue current antibiotic Meets criteria for gram-negative sepsis[altered mental status, tachycardia, lactic acidosis, positive urine cultures E. coli] Disposition; try to contact family, follow neuro work-up DC planning per case management when patient is stable, History Interval history: I have seen and examined the patient at the bedside Patient's chart and medications reviewed Patient feels slightly better sitting in the chair Vital signs noted Neuro work-up is in progress Hospitalist Physical - Constitutional Vitals: Temp Pulse Resp BP Pulse Ox 98.3 F 112 H 18 170/98 99 08/04/21 16:31 08/04/21 16:31 08/04/21 16:31 08/04/21 16:31 08/04/21 16:31 General appearance: Present: no acute distress, well-nourished, other (Patient is more alert and awake today) - EENT Eyes: Present: PERRL, EOM intact - Neck Neck: Present: supple, normal ROM - Respiratory Respiratory effort: normal Respiratory: bilateral: diminished, negative: rales, rhonchi, wheezing - Cardiovascular Rhythm: regular Heart Sounds: Present: S1 & S2 - Extremities Extremities: no ischemia, No edema - Abdominal General gastrointestinal: soft, non-tender, non-distended, normal bowel sounds - Integumentary Integumentary: Present: clear, warm - Psychiatric Psychiatric: appropriate mood/affect, cooperative - Neurologic Neurologic: moves all extremities HEART Score - HEART Score Troponin: Troponin T < 0.010 ng/mL (0.00-0.029) 08/01/21 00:26 Results - Labs CBC & Chem 7: 08/03/21 04:35 08/03/21 04:35 Labs: Laboratory Last Values WBC 8.6 K/mm3 (4.5-11.0) 08/03/21 04:35 RBC 3.87 M/mm3 (3.65-5.03) 08/03/21 04:35 Hgb 9.5 gm/dl (10.1-14.3) L 08/03/21 04:35 Hct 29.5 % (30.3-42.9) L 08/03/21 04:35 MCV 76 fl (79-97) L 08/03/21 04:35 MCH 25 pg (28-32) L 08/03/21 04:35 MCHC 32 % (30-34) 08/03/21 04:35 RDW 19.6 % (13.2-15.2) H 08/03/21 04:35 Plt Count 414 K/mm3 (140-440) 08/03/21 04:35 Lymph % (Auto) 32.9 % (13.4-35.0) 08/02/21 04:20 [place] % (Auto) 6.5 % (0.0-7.3) 08/02/21 04:20 Eos % (Auto) 2.3 % (0.0-4.3) 08/02/21 04:20 Baso % (Auto) 1.0 % (0.0-1.8) 08/02/21 04:20 Lymph # (Auto) 2.8 K/mm3 (1.2-5.4) 08/02/21 04:20 [place] # (Auto) 0.6 K/mm3 (0.0-0.8) 08/02/21 04:20 Eos # (Auto) 0.2 K/mm3 (0.0-0.4) 08/02/21 04:20 Baso # (Auto) 0.1 K/mm3 (0.0-0.1) 08/02/21 04:20 Seg Neutrophils % 57.3 % (40.0-70.0) 08/02/21 04:20 Seg Neutrophils # 4.9 K/mm3 (1.8-7.7) 08/02/21 04:20 ABG pH 7.437 pH Units (7.350-7.450) 08/01/21 10:05 ABG pCO2 39.3 mm Hg 08/01/21 10:05 ABG pO2 83.9 mm Hg (80.0-90.0) 08/01/21 10:05 ABG HCO3 25.9 mmol/L (20.0-26.0) 08/01/21 10:05 ABG O2 Saturation 97.1 % (95.0-99.0) 08/01/21 10:05 ABG O2 Content 20.4 (0.0-44) 08/01/21 10:05 ABG Base Excess 1.8 mmol/L (-2.0-3.0) 08/01/21 10:05 ABG Hemoglobin 9.8 gm/dl (12.0-16.0) L 08/01/21 10:05 ABG Carboxyhemoglobin 1.3 % (0.0-5.0) 08/01/21 10:05 ABG Methemoglobin 0.6 % (0.0-1.5) 08/01/21 10:05 VBG pH 7.406 (7.320-7.420) 08/01/21 00:26 Oxyhemoglobin 95.3 % (95.0-99.0) 08/01/21 10:05 FiO2 21 % 08/01/21 10:05 Sodium 138 mmol/L (137-145) 08/03/21 04:35 Potassium 3.7 mmol/L (3.6-5.0) 08/03/21 04:35 Chloride 104.6 mmol/L (98-107) 08/03/21 04:35 Carbon Dioxide 23 mmol/L (22-30) 08/03/21 04:35 Anion Gap 14 mmol/L 08/03/21 04:35 BUN 16 mg/dL (7-17) 08/03/21 04:35 Creatinine 0.7 mg/dL (0.6-1.2) 08/03/21 04:35 Estimated GFR > 60 ml/min 08/03/21 04:35 BUN/Creatinine Ratio 23 % 08/03/21 04:35 Glucose 192 mg/dL (65-100) H 08/03/21 04:35 POC Glucose 175 mg/dL (70-105) H 08/04/21 16:29 Lactic Acid 1.80 mmol/L (0.7-2.0) 08/01/21 06:48 Calcium 8.5 mg/dL (8.4-10.2) 08/03/21 04:35 Total Bilirubin 0.30 mg/dL (0.1-1.2) 08/01/21 00:26 AST 9 units/L (5-40) 08/01/21 00:26 ALT 7 units/L (7-56) 08/01/21 00:26 Alkaline Phosphatase 135 units/L (35-129) H 08/01/21 00:26 Total Creatine Kinase 30 units/L (30-135) 08/01/21 00:26 CK-MB (CK-2) 1.1 ng/mL (0.0-4.0) 08/01/21 00:26 CK-MB (CK-2) Rel Index 3.6 (0-4) 08/01/21 00:26 Troponin T < 0.010 ng/mL (0.00-0.029) 08/01/21 00:26 Total Protein 7.8 g/dL (6.3-8.2) 08/01/21 00:26 Albumin 3.5 g/dL (3.9-5) L 08/01/21 00:26 Albumin/Globulin Ratio 0.8 % 08/01/21 00:26 Urine Color Yellow (Yellow) 07/31/21 03:21 Urine Turbidity Cloudy (Clear) 07/31/21 03:21 Urine pH 6.0 (5.0-7.0) 07/31/21 03:21 Ur Specific [place] 1.016 (1.003-1.030) 07/31/21 03:21 Urine Protein >500 mg/dL (Negative) 07/31/21 03:21 Urine Glucose (UA) >=500 mg/dL (Negative) 07/31/21 03:21 Urine Ketones Tr mg/dL (Negative) 07/31/21 03:21 Urine Blood Sm (Negative) 07/31/21 03:21 Urine Nitrite Neg (Negative) 07/31/21 03:21 Urine Bilirubin Neg (Negative) 07/31/21 03:21 Urine Urobilinogen < 2.0 mg/dL (<2.0) 07/31/21 03:21 Ur Leukocyte Esterase Lg (Negative) 07/31/21 03:21 Urine WBC (Auto) 56.0 /HPF (0.0-6.0) H 07/31/21 03:21 Urine RBC (Auto) 2.0 /HPF (0.0-6.0) 07/31/21 03:21 U Epithel Cells (Auto) 4.0 /HPF (0-13.0) 07/31/21 03:21 Urine Bacteria (Auto) 1+ /HPF (Negative) 07/31/21 03:21 Urine WBC Clumps 2+ /HPF 07/31/21 03:21 Microbiology: Microbiology 07/31/21 Unknown Urine,Clean Catch Urine Culture - Final Escherichia Coli Escherichia Coli#2 08/01/21 02:44 Peripheral/Venous Blood Culture - Preliminary NO GROWTH AFTER 72 HOURS 08/01/21 02:44 Peripheral/Venous Blood Culture - Preliminary NO GROWTH AFTER 72 HOURS De La Torre/IV: Voiding Method Toilet Active Medications - Current Medications Current Medications: Generic Name Dose Route Start Last Admin Trade Name Freq PRN Reason Stop Dose Admin Acetaminophen 650 mg 08/01/21 02:42 Acetaminophen 325 Mg Tab PO Q6H PRN Pain MILD(1-3)/Fever >100.5/COOK Aspirin 325 mg 08/01/21 10:00 08/04/21 13:36 Aspirin 325 Mg Tab PO 325 mg QDAY EDIS Administration Atorvastatin Calcium 40 mg 08/02/21 22:00 08/03/21 21:46 Atorvastatin 40 Mg Tab PO 40 mg QHS EDIS Administration Bisacodyl 10 mg 08/01/21 02:42 Bisacodyl 10 Mg Rect Supp [place] QDAY PRN Constipation Dextrose 0 ml 08/01/21 02:42 Dextrose 50% In Water (25gm) 50 Ml Syringe IV Q30MIN PRN Hypoglycemia Protocol Docusate Sodium 100 mg 08/02/21 22:00 08/04/21 13:36 Docusate Sodium 100 Mg Cap PO 100 mg BID EDIS Administration Famotidine 20 mg 08/02/21 10:00 08/04/21 13:36 Famotidine 20 Mg Tab PO 20 mg QDAY EDIS Administration Heparin Sodium (Porcine) 5,000 unit 08/01/21 06:00 08/04/21 13:36 Heparin 5,000 Unit/1 Ml Vial SUB-Q 5,000 unit Q8HR EDIS Administration Hydralazine HCl 10 mg 08/02/21 06:00 08/04/21 06:25 Hydralazine 20 Mg/1 Ml Inj IV 10 mg Q4H PRN Administration Hypertension Hydrochlorothiazide 25 mg 08/02/21 10:00 08/04/21 13:36 Hydrochlorothiazide 25 Mg Tab PO 25 mg QDAY EDIS Administration Ceftriaxone Sodium 1 gm in 50 mls @ 100 mls/hr 08/01/21 04:00 08/04/21 13:36 Rocephin/Ns 1 Gm/50 Ml IV 08/07/21 10:29 100 mls/hr Q24HR EDIS Administration Protocol Insulin Glargine 15 units 08/03/21 08:00 08/04/21 13:36 Insulin Glargine 100 Units/Ml SUB-Q 15 units QAMDIAB EDIS Administration Insulin Human Lispro 0 unit 08/01/21 07:30 08/04/21 17:10 Insulin Lispro 100 Unit/Ml SUB-Q 3 unit ACHS EDIS Administration Protocol Insulin Human Regular 5 units 08/02/21 11:30 08/04/21 17:10 Insulin Regular, Human 100 Units/1 Ml SUB-Q 5 units AC EDIS Administration Lisinopril 20 mg 08/02/21 10:00 08/04/21 13:36 Lisinopril 20 Mg Tab PO 20 mg QDAY EDIS Administration Magnesium Hydroxide 30 ml 08/01/21 02:42 08/04/21 13:36 Magnesium Hydroxide (Mom) Oral Liqd Udc PO 30 ml Q4H PRN Administration Constipation Metoclopramide HCl 10 mg 08/01/21 02:42 Metoclopramide 10 Mg Tab PO Q6H PRN Nausea And Vomiting Ondansetron HCl 4 mg 08/01/21 02:42 Ondansetron 4 Mg/2 Ml Inj IV Q8H PRN Nausea And Vomiting Promethazine HCl 25 mg 08/01/21 02:42 Promethazine 25 Mg Rect Supp [place] Q6H PRN Nausea And Vomiting Sodium Chloride 10 ml 08/01/21 10:00 08/04/21 13:36 Sodium Chloride 0.9% 10 Ml Flush Syringe IV 10 ml BID EDIS Administration Sodium Chloride 10 ml 08/01/21 02:42 Sodium Chloride 0.9% 10 Ml Flush Syringe IV PRN PRN LINE FLUSH Nutrition/Malnutrition Assess - Dietary Evaluation Nutrition/Malnutrition Findings: Nutrition Notes Start: 08/01/21 18:28 Freq: Status: Active Protocol: Document 08/01/21 18:28 RAMONA (Rec: 08/01/21 18:36 RAMONA [id number]) Nutrition Notes Need for Assessment generated from: MD Order,Education Initial or Follow up Brief Note Current Diagnosis Diabetes,Hypertension Other Pertinent Diagnosis Encephalopathy, UTI, AMS. Current Diet Cardiac/Consistent Carbohydrates Diet (since L ). Height 5 ft 5 in Weight 79.379 kg [place] Body Weight (kg) 56.81 BMI 29.1 Intake Prior to Admission Good Weight change and time frame Pt denies having loss body weight [employer]. Weight Status Overweight Subjective/Other Information RD consult for nutrition education assessment. No reports available on Pt's PO intake of meals at the time , will assess at F/U. Pt is on Room Air, O2 satuyration @ 100%, according to Physical Assessment History notes. Bedside Swallow Evaluation passed, according to Event note. Pt still in critical condition , not a candidate for Nutrition Education at the time, will assess feasibility on F/U. Percent of energy/protein needs met: Prescribed Cardiac/Consistent Carbohydrates Diet provides for energy/protein needs (1, 977 Kcal/86 g) during LOS. Nutrition Intervention Follow-Up By: 08/08/21 Additional Comments Nutrition education will be provided on F/U, if feasible. Continue monitoring food tolerance, %PO intake of meals , and BM.
[2021-08-05] MEDS: hydrALAZINE 25 MG TAB PO SCH ×2 (00:13→05:47)
[2021-08-05 05:45] LABS: Hematocrit 31.2 % (30.3-42.9); Hemoglobin 9.9 gm/dl (10.1-14.3); Mean Corpuscular HGB Conc 32 % (30-34); Mean Corpuscular Volume 77 fl (79-97); Platelet Count 437 K/mm3 (140-440); Red Blood Count 4.06 M/mm3 (3.65-5.03)
[2021-08-05] MEDS: HEPARIN 5,000 UNIT/1 ML VIAL SUB-Q SCH (05:47)
[2021-08-05 05:55] LABS: BUN/Creatinine Ratio 24; Blood Urea Nitrogen 19 mg/dL (7-17); Calcium 8.6 mg/dL (8.4-10.2); Chol/HDL Ratio 3.46 %; HDL Cholesterol 58 mg/dL (40-59); Hemolysis Index 2; LDL Cholesterol,Direct 118 mg/dL (50-130)
[2021-08-05 06:33] LABS: Anisocytosis 2+; Basophils % (Manual) 0 % (0.0-1.8); Hypochromasia 2+; Total Cells Counted 100
[2021-08-05 06:34] LABS: Large Platelets Few; Platelet Estimate Consistent w Auto
[2021-08-05] MEDS: INSULIN REGULAR, HUMAN 100 UNITS/1 ML SUB-Q SCH (10:32)
[2021-08-05] MEDS: LISINOPRIL 20 MG TAB PO SCH (10:32)
[2021-08-05] MEDS: INSULIN GLARGINE 100 UNITS/ML SUB-Q SCH (10:32)
[2021-08-05] MEDS: ASPIRIN 325 MG TAB PO SCH (10:32)
[2021-08-05] MEDS: hydroCHLOROthiazide 25 MG TAB PO SCH (10:32)
[2021-08-05] MEDS: DOCUSATE SODIUM 100 MG CAP PO SCH (10:32)
[2021-08-05] MEDS: FAMOTIDINE 20 MG TAB PO SCH (10:32)
[2021-08-05] MEDS: INSULIN LISPRO 100 UNIT/ML SUB-Q SCH (10:33)
[2021-08-05] MEDS: cefTRIAXone/NS 1 GM/50 ML 1 GM/50 ML BAG IV SCH (10:37)
--- NOTE | 2021-08-05 10:53 | Magnetic Resonance Report ---
MRA NECK 08/05/2021 INDICATION / CLINICAL INFORMATION: cva, AMS, MITA. LEG WEAKNESS. TECHNIQUE: Routine MRA of the neck are performed. 3-D/MIP reformats postprocessed. Percentage stenosis is deter mined by direct quantitative measurements of distal internal carotid artery diameter compared with no rmal reference segments or by criteria similar to NASCET where applicable. COMPARISON: None available. FINDINGS: Unenhanced MR angiographic images of the neck were obtained. 3D/MIP reformats were post-processed. Carotid bifurcations: No significant abnormality. Common carotid arteries: No significant abnormality. Cervical internal carotid arteries: No significant abnormality. Cervical vertebral arteries: No significant abnormality. Visible aortic arch: Not well visualized IMPRESSION: No significant abnormality Signer Name: Guilherme Carrion MD Signed: 08/05/2021 10:49 AM Workstation Name: [id number]
--- NOTE | 2021-08-05 11:03 | Magnetic Resonance Report ---
MRI BRAIN 08/05/2021 INDICATION / CLINICAL INFORMATION: stroke, BILAT. LEG WEAKNESS. TECHNIQUE: Multiplanar, multisequence MR images of the brain were obtained. COMPARISON: None available. FINDINGS: BRAIN / INTRACRANIAL CONTENTS: Unenhanced MR images of the brain demonstrate no evidence of acute abn ormality. Ventricles and sulci are normal in size and shape for age. There is no evidence of ischemic injury, hemorrhage, or mass. Minimal microangiopathic white matter T 2 weighted hyperintensities are present in the periventricular white matter. There are no abnormal extra-axial fluid collections. EXTRACRANIAL: Unremarkable CRANIOCERVICAL JUNCTION: No significant abnormality. VASCULAR FLOW-VOIDS: No significant abnormality. IMPRESSION: No significant abnormality. Signer Name: Guilherme Carrion MD Signed: 08/05/2021 10:59 AM Workstation Name: [id number]
--- NOTE | 2021-08-05 11:05 | Magnetic Resonance Report ---
MRA HEAD 08/05/2021 INDICATION / CLINICAL INFORMATION: cva, MITA. LEG WEAKNESS. TECHNIQUE: Routine MRA of the head is performed. 3-D/MIP reformats postprocessed. COMPARISON: None available. FINDINGS: MRA HEAD: Intracranial internal carotid arteries: No significant abnormality. Anterior cerebral arteries: No significant abnormality. Middle cerebral arteries: No significant abnormality. Intracranial vertebral arteries: No significant abnormality. Basilar artery: No significant abnormality. Posterior cerebral arteries: No significant abnormality. IMPRESSION: No significant abnormality Signer Name: Guilherme Carrion MD Signed: 08/05/2021 11:00 AM Workstation Name: [id number]
--- NOTE | 2021-08-05 11:17 | Discharge Summary ---
Providers - Providers Date of Admission: 08/01/21 02:42 Date of discharge: 08/05/21 Attending physician: KENDELL ALMEIDA MD 08/01/21 02:42 Consult to Dietitian/Nutrition [CONS] Routine Physician Instructions: Reason For Exam: Reason for Consult: Diet education Consult to Dietitian/Nutrition [CONS] Routine Physician Instructions: Reason For Exam: Reason for Consult: Diet education Consult to Physician [CONS] Routine Comment: Consulting Provider: STEFFANIE ZARATE Physician Instructions: Reason For Exam: ALTERED MENTAL STATUS, R/O CVA Occupational Therapy Evaluate and Treat [CONS] Routine Comment: Reason For Exam: Neuro deficits Physical Therapy Evaluation and Treat [CONS] Routine Comment: Reason For Exam: Neuro deficits 08/01/21 02:48 Speech Therapy Evaluation and Treat [CONS] Routine Reason For Exam: swallow eval Primary care physician: ASHER COONEY Hospitalization Reason for admission: CVA rule out Condition: Fair Hospital course: 66-year-old female who was brought to the emergency department secondary to acute encephalopathy. She was found to have hypertensive urgency, UTI and elevated blood glucose. Initial CT scan of the head was unremarkable. She is admitted for CVA rule out. Carotid Doppler showed less than 50% stenosis bilaterally. Echocardiogram showed normal ejection fraction with no evidence of ASD. MRA of the head and neck showed no significant abnormality. MRI of the brain was also negative for acute abnormality. Once clinically stable, patient was discharged home with family. Disposition: 01 HOME / SELF CARE / HOMELESS Final Discharge Diagnosis (Prints w/discharge instructions): CVA ruled out. Acute metabolic encephalopathy. Hypertensive emergency. Hypertension. Mild protein calorie malnutrition. Metabolic acidosis. Sepsis secondary to urinary tract infection. Type 2 diabetes with hyperglycemia Time spent for discharge: 40 minutes Core Measure Documentation - Palliative Care Palliative Care/ Comfort Measures: Not Applicable - Core Measures Any of the following diagnoses?: none Exam - Physical Exam Narrative exam: GENERAL: Well-developed well-nourished. Sitting on the side of the bed in no acute distress. HEENT: Normocephalic. Atraumatic. NECK: Supple. CHEST/LUNGS: CTAB on room air HEART/CARDIOVASCULAR: RRR. No murmur, rubs or gallops appreciated. ABDOMEN: +BS. NT/ND. SKIN: No rashes noted. NEURO: No focal motor deficit. Follows all commands. MUSCULOSKELETAL: No joint effusion EXTREMITIES: No cyanosis, clubbing or edema. PSYCH: Cooperative. - Constitutional Vitals: Temp Pulse Resp BP Pulse Ox 98.0 F 101 H 18 159/85 97 08/05/21 08:39 08/05/21 08:39 08/05/21 08:39 08/05/21 08:39 08/05/21 08:39 Plan Care Plan Goals: Please make sure you are taking all your medications as prescribed. We did find that she had a urinary tract infection please take the rest of the antibiotics until they are completed. Please make sure to schedule an appointment your primary care provider and bring along your medications with new dosages. Make sure you check your blood sugars at least twice per day and record the numbers. Take your log to your PCP appointment. Follow up with: ASHER COONEY MD [Primary Care Provider] - 3-5 Days Prescriptions: AtorvaSTATin [Lipitor] 40 mg PO QHS 30 Days #30 tab hydrALAZINE [Apresoline TAB] 25 mg PO Q8HR 30 Days #90 tablet Aspirin 325 mg PO QDAY 30 Days #30 tablet Syrge-Ndl,Ins 0.3 ml Half Cipriano [Insulin Syringe] 1 each MC QDAY 30 Days #1 box Insulin Glargine [Lantus VIAL] 20 units SUB-Q QAMDIAB 30 Days #600 units levoFLOXacin [Levaquin] 750 mg PO QDAY 2 Days #2 tablet Lisinopril/Hydrochlorothiazide [Zestoretic 20-12.5 mg] 1 tab PO QDAY 30 Days #30 tab Other Discharge Orders: Glucometer (Amb) Location: None Selected Glucometer supplies[Amb] Location: None Selected
[2021-08-05 12:44] VITALS: BP 156/84
== END 2021-08-05 14:35 | disposition home or self-care (01) | DRG 871 ==
LOC: ED 23:09 → IMCU 08-01 02:42 → CC1 08-01 08:32 → 4A 08-02 16:48
PROVIDERS: ADMIT Internal Medicine Geriatric Medicine; ATTEND Student in an Organized Health Care Education/Training Program
PROC: 4A033R1 Measurement of Arterial Saturation, Peripheral, Percutaneous Approach (ICD-10-PCS; principal; 2021-08-01)
DX: A41.51 Sepsis due to Escherichia coli [E. coli] (principal); G93.41 Metabolic encephalopathy; N30.00 Acute cystitis without hematuria; I16.1 Hypertensive emergency; E87.2 Acidosis; E44.1 Mild protein-calorie malnutrition; I10 Essential (primary) hypertension; Z68.29 Body mass index [BMI] 29.0-29.9, adult; Z79.899 Other long term (current) drug therapy; E11.65 Type 2 diabetes mellitus with hyperglycemia
CPT/HCPCS: 36415; 36600; 70450; 70544; 70547; 70551; 71045; 80048; 80053; 80061; 81001; 82140; 82550; 82553; 82803; 82805; 82962; 84484; 85007; 85025; 85027; 87040; 87076; 87086; 87186; 93005; 93306; 93880; G0378; J3490; Q9967; C8929; J0360; J0696; J1644; J1815; J7030